=== PATIENT | female | born 1985 | race Caucasian/White ===

== ENCOUNTER 2020-05-16 07:10 | Day surgery (SDC) | payer BC ==
[2020-05-10 16:56] LABS: BASOPHILS % (AUTO) 0.2 % (0-1); EOSINOPHILS # (AUTO) 0.3 X10'3 (0-0.9); EOSINOPHILS % (AUTO) 2.8 % (0-6); LYMPHOCYTES # (AUTO) 2.9 X10'3 (1.1-4.8); LYMPHOCYTES % (AUTO) 31.8 % (21-51); MEAN CORPUSCULAR HEMOGLOBIN 24.9 PG (27.0-31.0); MEAN CORPUSCULAR HGB CONC 32.7 g/dL (33.0-36.5); MEAN CORPUSCULAR VOLUME 76.3 FL (78-98); MEAN PLATELET VOLUME 9.7 FL (7.4-10.4); MONOCYTES # (AUTO) 0.7 X10'3 (0-0.9); NEUTROPHILS # (AUTO) 5.1 X10'3 (1.8-7.7); NEUTROPHILS % (AUTO) 57.2 % (42-75); PRE OP HEMATOCRIT 38.1 % (35.0-45.0); PRE OP HEMOGLOBIN 12.4 g/dL (12.0-16.0); PRE OP PLATELET COUNT 333 X10'3 (140-440); RED BLOOD COUNT 4.99 X10'6 (4.20-5.60)
[2020-05-10 17:01] LABS: ALANINE AMINOTRANSFERASE 19 U/L (12-78); ALBUMIN 3.7 G/DL (3.4-5.0); ALBUMIN/GLOBULIN RATIO 0.8 (1.1-1.5); ALKALINE PHOSPHATASE 109 IU/L (46-116); ANION GAP 9 (8-16); ASPARTATE AMINO TRANSFERASE 12 U/L (10-37); BILIRUBIN,TOTAL 0.2 MG/DL (0.1-1.0); BLOOD UREA NITROGEN 16 MG/DL (7-18); BUN/CREATININE RATIO 20.5 (6.6-38.0); CALCIUM 8.8 MG/DL (8.5-10.1); CHLORIDE 104 MMOL/L (99-107); CREATININE 0.78 MG/DL (0.40-0.90); GLUCOSE 87 MG/DL (70-104); POTASSIUM 3.9 MMOL/L (3.5-5.1); SODIUM 138 MMOL/L (135-145); TOTAL CARBON DIOXIDE 24.7 MMOL/L (24-32); TOTAL PROTEIN 8.3 G/DL (6.4-8.2); eGFR 84 ML/MIN
[~2020-05-16] VITALS: Ht 165.1 cm; Wt 137.4 kg
[2020-05-16] VITALS (8 sets, daily range): BP systolic 109–118; BP diastolic 54–76
[~2020-05-16 07:10] MED LIST: CETI10TA18 PO; ceFAZolin 2gm in dextrose, iso 50 ML IV ONE; famotidine 20mg tablet PO ONE; ringers solution, lacted 1,000 ML IV SCH
[2020-05-16] MEDS ORDERED: LIDOcaine 1% 30ml preserv. free vial ONE (07:41)
[2020-05-16] MEDS ORDERED: ringers solution, lacted 1,000 ML IV SCH (08:14)
[2020-05-16] MEDS ORDERED: meperidine/PF 25mg/ml syringe IV PRN ×3 (08:15)
[2020-05-16] MEDS ORDERED: morphine 4 MG/ML inj SYRINge IV PRN (08:15)
[2020-05-16] MEDS ORDERED: morphine 2 MG/ML inj. syringe IV PRN (08:15)
[2020-05-16] MEDS ORDERED: ondansetron/PF 4mg/2ml inj IV PRN (08:15)
[2020-05-16] MEDS ORDERED: proCHLORperazine 10 MG/2 ml inj IV PRN (08:15)
[2020-05-16] MEDS ORDERED: MIDAZolam 5mg/5ml vial ONE (09:56)
[2020-05-16] MEDS ORDERED: fentaNYL/PF 50MCG/1 ML 2ML syringe ONE (09:56)
[2020-05-16] MEDS ORDERED: BUPIVAcaine/PF 2.5 mg/ml (0.25%) 30ml vial ONE (09:57)
[2020-05-16] MEDS ORDERED: ketorolac trometh. 30mg/ml inj. ONE (10:11)
[2020-05-16] MEDS ORDERED: propofol inj 20 ML IV ONE (10:40)
--- NOTE | 2020-05-16 10:46 | NUR ---
RECEIVED FROM OR VIA [facility] ACCOMPANIED BY ANESTHESIOLOGIST DR BERRIOS, REPORT GIVEN. PT AWAKE AND ALERT WITH NO COMPLAINT OF PAIN. 20 GAUGE PIV R FA PATENT AND RUNNING LR AT 100 ML/HR. DRESSING L AC AND LEFT SMALL FINGER CDI. PPULSES PRESENT WITH GOOD CAP REFILL, STEINBERG, VSS, L ARM ELEVATED AND ICE APPLIED, RESTING COMFORTABLY.
--- NOTE | 2020-05-16 11:46 | NUR ---
PT AWAKE AND ALERT WITH NO COMPLAINT OF PAIN. 20 GAUGE PIV R FA DC/D WITH CATH TIP INTACT. DRESSING L AC AND LEFT SMALL FINGER CDI. PPULSES PRESENT WITH GOOD CAP REFILL, STEINBERG, VSS. TOLERATING FLUIDS, ABLE TO DRESS SELF AND AMBULATE. DISCHARGE INSTRUCTIONS GIVEN AND PT VERBALIZED UNDERSTANDING. TRANSPORTED VIA WHEELCHAIR TO FAMILY MEMBER IN PRIVATE VEHICLE TO HOME.
== END 2020-05-16 11:46 | disposition home or self-care (01) ==
LOC: PAS 07:10
PROVIDERS: ATTEND Orthopaedic Surgery Hand Surgery
DX: G56.22 Lesion of ulnar nerve, left upper limb (principal); M67.442 Ganglion, left hand; Z11.59 Encounter for screening for other viral diseases; Z98.890 Other specified postprocedural states; E66.01 Morbid (severe) obesity due to excess calories; Z68.43 Body mass index [BMI] 50.0-59.9, adult; Z88.5 Allergy status to narcotic agent; Z88.8 Allergy status to other drugs, medicaments and biological substances; Z72.89 Other problems related to lifestyle; Z79.899 Other long term (current) drug therapy; R97.8 Other abnormal tumor markers
CPT/HCPCS: 26160; 36415; 64718; 80053; 82948; 84702; 85025; J1885; J2001; J2250; J2704; J3010; J3490; U0003; A4215; A6449; J7120

== ENCOUNTER 2020-07-01 08:34 | Day surgery (SDC) | payer BC ==
[2020-06-24 12:42] LABS: BASOPHILS % (AUTO) 0.6 % (0-1); EOSINOPHILS # (AUTO) 0.2 X10'3 (0-0.9); EOSINOPHILS % (AUTO) 3.4 % (0-6); LYMPHOCYTES # (AUTO) 2.4 X10'3 (1.1-4.8); LYMPHOCYTES % (AUTO) 37.1 % (21-51); MEAN CORPUSCULAR HEMOGLOBIN 25.1 PG (27.0-31.0); MEAN CORPUSCULAR HGB CONC 32.5 g/dL (33.0-36.5); MEAN CORPUSCULAR VOLUME 77.2 FL (78-98); MEAN PLATELET VOLUME 9.5 FL (7.4-10.4); MONOCYTES # (AUTO) 0.5 X10'3 (0-0.9); MONOCYTES % (AUTO) 7.8 % (2-12); NEUTROPHILS # (AUTO) 3.4 X10'3 (1.8-7.7); NEUTROPHILS % (AUTO) 51.1 % (42-75); PRE OP PLATELET COUNT 325 X10'3 (140-440); RED BLOOD COUNT 5.18 X10'6 (4.20-5.60); RED CELL DISTRIBUTION WIDTH 16.5 % (11.5-14.5)
[2020-06-24 13:01] LABS: HCG SERUM QL NEGATIVE
[~2020-07-01] VITALS: Ht 165.1 cm; Wt 135.7 kg
[~2020-07-01 08:34] MED LIST changes: +ACET-2119 PO; +IBUPROFEN; -ceFAZolin 2gm in dextrose, iso 50 ML IV ONE; +ceFAZolin inj. 3,000 MG in normal saline 100ml IV soln 100 ML IV ONE; +cefazolin/dext.iso 2gm/50ml 50 ML IV ONE
--- NOTE | 2020-07-01 09:26 | NUR ---
2GM ANCEF ORDERED, PHARMACIST SAID 3GM PREPARED AND TO BE ADMINISTERED BY PROTOCOL
[2020-07-01 09:56] VITALS: BP 131/67
[2020-07-01 10:06] VITALS: BP 131/67
[2020-07-01] MEDS ORDERED: BUPIVAcaine/PF 2.5mg/ml (0.25%) 10ml vial ONE ×2 (10:43→11:19)
[2020-07-01] MEDS ORDERED: LIDOcaine 0.5% (5mg/ml) 50ml vial ONE (10:43)
[2020-07-01] MEDS ORDERED: midazolam 2 mg/2 ml injection ONE ×2 (11:06)
[2020-07-01] MEDS ORDERED: fentaNYL/PF 50MCG/1 ML 2ML syringe ONE (11:07)
[2020-07-01] MEDS ORDERED: propofol inj 20 ML IV ONE (11:32)
[2020-07-01 11:42] VITALS: BP 132/79
--- NOTE | 2020-07-01 11:42 | NUR ---
Received from OR via [facility] , accompanied by Anesthesiologist MAGGIE and report given by Anesthesiolgist. PATIENT WITH 20G PIV IN LEFT HAND RUNNING LR AT 100. RIGHT ELBOW LIEN BANDAGE PRESENT AND IS CDI. VSS. DENIES PAIN . RIGHT PINKY DRESSING IS CDI. Addendum: 07/01/20 at 1159 by Jaron Carreon RN, RN Amended: Links added.
[2020-07-01 11:52] VITALS: BP 110/66
[2020-07-01 12:02] VITALS: BP 116/72
--- NOTE | 2020-07-01 12:12 | NUR ---
PATIENT AND FAMILY AND THEY HAVE VERBALIZED UNDERSTANDING, OPPORTUNITY TO ASK QUESTIONS GIVEN AND PATIENT COMFORTABLE WITH DC. IV TAKEN OUT WITHOUT COMPLICATION. PATIENT HAS MET ALL DC CRITERIA FOR DC HOME. I HAVE REVIEWED D/C INSTRUCTIONS WITH OUT VIA WHEELCHAIR WHERE PATIENT WAS TAKEN HOME WITH ALL BELONGINGS. FAMILY GAVE PATIENT TRANSPORT HOME. Addendum: 07/01/20 at 1227 by Jaron Carreon RN, RN Amended: Links added.
== END 2020-07-01 12:12 | disposition home or self-care (01) ==
LOC: PAS 08:34
PROVIDERS: ATTEND Orthopaedic Surgery Hand Surgery
DX: G56.21 Lesion of ulnar nerve, right upper limb (principal); M67.441 Ganglion, right hand; E66.9 Obesity, unspecified; Z68.43 Body mass index [BMI] 50.0-59.9, adult; Z20.828 Contact with and (suspected) exposure to other viral communicable diseases; Z98.890 Other specified postprocedural states; Z88.5 Allergy status to narcotic agent; Z88.8 Allergy status to other drugs, medicaments and biological substances; Z79.899 Other long term (current) drug therapy; Z72.89 Other problems related to lifestyle
CPT/HCPCS: 26160; 36415; 64718; 82948; 84703; 85025; 87635; J0690; J2001; J2250; J2704; J3010; J3490; A4215; A6449; J7120